=== PATIENT | male | born 1985 | race Caucasian/White ===

== ENCOUNTER 2021-05-22 22:11 | Observation (INO) ==
[2021-05-22] MEDS ORDERED: SODIUM CHLORIDE 0.9% 1000ML 1,000 ML IV STA (23:05)
[2021-05-22] MEDS ORDERED: MoRPHine SULFATE 4 MG/ML 1 ML CARP\\VIAL IV STA (23:05)
[2021-05-22] MEDS ORDERED: ONDANSETRON INJ 2 MG/ML 2 ML VIAL IV STA (23:05)
[2021-05-22 23:24] LABS: Basophils # (auto) 0.02 K/uL (0-0.2); Basophils % (auto) 0.2 %; Eosinophils # (auto) 0.01 K/uL (0-0.5); Eosinophils % (auto) 0.1 %; Hematocrit (blood only) 42.7 % (42-52); Hemoglobin 15.2 g/dL (14.0-18.0); Immature Granulocytes # (auto) 0.02 K/uL (0.00-0.02); Immature Granulocytes % (auto) 0.2 %; Lymphocytes # (auto) 0.94 K/uL (1.2-3.4); Lymphocytes % (auto) 7.2 %; Mean Corpuscular Hemoglobin 33.3 pg (25-34); Mean Corpuscular Hgb Conc 35.6 g/dL (32-36); Mean Corpuscular Volume 93.4 fL (80-100); Mean Platelet Volume 11.5 fL (7.4-10.4); Monocytes # (auto) 0.99 K/uL (0.11-0.59); Monocytes % (auto) 7.6 %; Neutrophils # (auto) 11.09 K/uL (1.4-6.5); Neutrophils % (auto) 84.7 %; Platelet Count 273 K/uL (130-400); RDW Coefficient of Variation 12.2 % (11.5-14.5); RDW Standard Deviation 41.6 fL (36.4-46.3); Red Blood Count 4.57 M/uL (4.7-6.1); White Blood Count 13.07 K/uL (4.8-10.8)
[2021-05-22 23:40] LABS: Albumin Level 4.4 gm/dl (3.4-5.0); BUN Creatinine Ratio 14.4 (10-20); Calcium 9.3 mg/dl (8.5-10.1); Creatinine Clr Calc Pharmacy 143.6 ml/min; Est GFR (African American) 120.6 ml/min; Potassium 3.7 mmol/L (3.5-5.1)
[2021-05-22 23:43] LABS: Albumin Globulin Ratio 1.2 (0.9-2); Bilirubin,Total 0.7 mg/dl (0.2-1); Globulin 3.6 gm/dl (2.5-4.0)
[2021-05-23] MEDS ORDERED: fentaNYL citrate 100 MCG/2 ML VIAL IV STA ×2 (00:16→02:06)
[2021-05-23] MEDS ORDERED: OPTIRAY 320 100ml IV ONE (01:10)
[2021-05-23 01:14] LABS: Appearance Urine Clear (Clear); Bilirubin Urine Negative (Negative); Blood Urine Negative (Negative); Color Urine Yellow; Glucose Urine UA Negative (Negative); Ketones Urine Trace (Negative); Leukocyte Esterase Urine Negative (Negative); Nitrite Urine Negative (Negative); Protein Urine Negative (Negative); Specific Gravity Urine 1.035 (1.000-1.030); Urobilinogen Urine Negative (Negative)
--- NOTE | 2021-05-23 01:48 | Ultrasound Report ---
US gallbladder CLINICAL HISTORY: 35 years-old Male presenting with ruq pain. TECHNIQUE: Real-time grayscale ultrasound imaging of the was performed for a focused evaluation at e site of clinical concern. COMPARISON: None. FINDINGS: Visualized portion of the pancreas shows normal ultrasound appearance. Liver is mildly enlarged measuring 18.3 cm in size. No evidence of hepatic steatosis, focal liver les ions or intrahepatic biliary dilatation. Gallbladder is fluid-filled with normal appearance of its wall and no evidence of pericholecystic alicia ma. No definite gallstones visualized however there is small amount of sludge is seen within dependen t portion of the gallbladder. Sonographic Ngueyn's sign is negative. Common bile duct is measuring 5 mm in size. Limited evaluation of the right kidney shows no evidence of hydronephrosis. IMPRESSION: 1. Slightly enlarged liver. 2. Gallbladder sludge. No sonographic evidence of pericholecystic inflammation. ACT 112: Negative or not required by law. Electronically signed by: Little Woodruff DO 05/23/2021 1:47 AM
--- NOTE | 2021-05-23 01:59 | CT Scan Report ---
CT abd pelvis IV con only CLINICAL HISTORY: right abd pain COMPARISON STUDY: None. TECHNIQUE: A dose lowering technique was utilized adhering to the principles of ALARA. CT DOSE: 909.81 mGy.cm FINDINGS: Lower chest: Limited evaluation of lung bases shows no evidence of acute abnormalities.. Liver: The contrast-enhanced liver is normal in size, contour, and attenuation. There is no intrahepa tic biliary ductal dilatation. The hepatic veins and portal veins are patent. Gallbladder: Unremarkable. Spleen: Normal in size and attenuation. Pancreas: Unremarkable. Adrenal glands: Unremarkable. Kidneys: There is symmetric renal cortical enhancement. The kidneys are normal in size without hydron ephrosis. Pelvic viscera: The bladder, and pelvic viscera are unremarkable. Bowel: Bowel loops are nondilated. Small duodenal diverticulum is seen. Appendix is dilated measuring 1.2 cm in diameter, shows mild mucosal enhancement and surrounding fat stranding. Small amount of fr ee fluid is seen within right lower quadrant. No definite evidence of abscess is seen at this time. S mall appendicolith is seen within lumen of appendix (3/303) Peritoneum: There is no intraperitoneal free air or abdominal ascites. Vasculature: The abdominal aorta is normal in course and caliber. Adenopathy: Multiple small lymph nodes are seen within retroperitoneal region, measuring less than 1 cm in short axis, could be reactive. Skeletal structures: Multilevel Schmorl nodes. Mild retrolisthesis of L5 on S1. IMPRESSION: 1. Acute appendicitis. No evidence of abscess formation is seen at this time. Findings were called t o the emergency Department at the time of this dictation. ACT 112: Negative or not required by law. The above report was generated using voice recognition software. It may contain grammatical, syntax o r spelling errors. Electronically signed by: Little Woodruff DO 05/23/2021 1:57 AM
[2021-05-23] MEDS ORDERED: cefOXitin 2,000 MG/60 ML BAG IV STA (02:06)
--- NOTE | 2021-05-23 02:45 | History & Physical Report ---
Date of Service May 23, 2021 Assessment & Plan (1) Acute appendicitis: Due to the patient's clinical presentation and imaging we will admit the patient to the hospital proceeding as follows: Provide analgesics Provide antiemetics Continue antibiotics. He has received a dose of Mefoxin in the ED Hydrate the patient with IV fluids Keep the patient n.p.o. Follow up on Covid test results Feel the patient would benefit from an appendectomy. I discussed with the patient and his father who was present at bedside outlining the risks, benefits, alternatives. They wish to proceed. Further recommendations were made based on the patient's clinical course as unfolds as well as operative findings. as above. hx c/w appendicitis. discussed options/risks ( bleeding/infection/blood clots/injury to another organ etc...). questions answered. will proceed with lap appy now. History of Present Illness Chief Complaint: Abdominal pain Primary Care Provider: NO PCP This is a 35-year-old male who presented to [facility] emergency department secondary to abdominal pain. Patient notes he was driving from [place] to [facility] [place] yesterday when he developed some back pain. Did not think anything of the back pain but then he ultimately developed some pain that was primarily located epigastric area that radiated across to the front side of his abdomen between the right upper and right lower quadrants. He has had associated nausea vomiting. He denies any fevers, shakes, chills. The patient says that he has never had any abdominal surgeries in the past. His most recent oral intake was approximately 6:00 PM on 05/22/2021. Patient merely thought he had a GI stomach bug however the pain persisted and did not improve so he presented to the emergency department. He does not note any radiation of his pain. He does note that the pain was worse when driving into the hospital and is also worse with certain movements. The only palliative factor he relates is pain medicine that was administered in the emergency department. In the emergency department the patient had labs and imaging which I independently reviewed. CT scan of the abdomen and pelvis showed a dilated appendix measuring 1.2 cm in diameter with some mucosal enhancement and fat stranding. Small appendicolith was noted within the lumen of the appendix and there is no definite evidence of abscess. Patient also did have a gallbladder ultrasound which showed sludge in the gallbladder but no pericholecystic inflammation. Labs included a CBC white blood cell count was 13.0. His hemoglobin, hematocrit, and platelet count are all within normal range. Chemistry profile showed his sodium was 135. Potassium, BUN, and creatinine were all noted to be within normal range. There is no elevation of LFTs or lipase. Urinalysis was not indicative of infection and a Covid test was pending. At the time my interview the patient was resting comfortably in bed he was in no distress. Allergies Allergy/AdvReac Type Severity Reaction Status Date / Time morphine Allergy Mild Rash Verified 05/23/21 01:17 shellfish derived Allergy Mild Unknown Verified 05/22/21 23:40 seasonal allergies Allergy Mild Congested Uncoded 05/22/21 23:39 Home Medications Medication Instructions Recorded Confirmed Type buspirone [BuSpar] 5 mg PO DAILY PRN 05/22/21 05/22/21 History cetirizine [Zyrtec] 5 mg PO BID 05/22/21 05/22/21 History Past Med/Surg History Medical History (Updated 05/23/21 @ 03:30 by Olya Rodriguez PA-C) No acute medical problems Surgical History (Updated 05/23/21 @ 03:26 by Olya Rodriguez PA-C) No pertinent past surgical history Social History Smoking Status: Never smoker Hx Alcohol Use: Yes Alcohol type: other Hx Substance Use: No Preferred Language: Mohawk Communication Ability: Effective Furnace Installer Required: No Beliefs That Will Affect Care: None Current Living Situation: Spouse and Family Other Information That Helps Us Care for You: No Feels Safe at Home: Yes Safety Concerns: Feels Safe At This Time Assistive Devices: None Review of Systems Constitutional: no fever and no chills Eyes: no diplopia Ear, Nose, Mouth, Throat: no ear pain Respiratory: no cough and no dyspnea Cardiovascular: no chest pain Gastrointestinal: + nausea and + vomiting; no abdominal pain Genitourinary: no dysuria Musculoskeletal: + back pain Integumentary: no rash Neurologic: no localized weakness Physical Exam Constitutional: well developed and well nourished; no acute distress Eyes: no conjunctival abnormality ENMT: Ears: no hearing impairment Neck: trachea midline Respiratory: normal respiratory effort, lungs clear to auscultation Cardiovascular: Rate/Rhythm: regular rate Gastrointestinal (Abdomen): Abdomen is rotund. Abdomen is soft. Bowel sounds are present. Patient did have pain with palpation which was greatest in the right lower quadrant over McBurney's point. There are some associated rebound tenderness. Musculoskeletal: No calf tenderness Skin: no rashes, warm and dry Neurologic: moves all extremities Psychiatric: A+Ox3, euthymic affect Results & Data Results & Data ([facility]) Vital Signs (Past 12 Hours) Vital Signs Temp Pulse Resp BP BP Pulse Ox 05/23/21 01:18 18 121/69 97 05/22/21 23:57 96 05/22/21 22:14 36.8 C 67 20 147/74 H 99 PG Care Time/CCT Total # of Minutes Spent Total Time Spent with Patient: Total time spent is greater than 50% in coordination of care (as documented) at patient's floor/unit and/or counseling patient: Coding Level of Care Code 72621 OBS Care - Level 3 Diagnoses Acute appendicitis K35.80
--- NOTE | 2021-05-23 03:30 | Emergency Department Note ---
History of Present Illness General Chief complaint: Abdominal Pain Stated complaint: POTENTIAL ACUTE APPENDICITIS Time Seen by Provider: 05/22/21 22:41 History of Present Illness Maximum Pain Intensity: 0 This 35-year-old presents to the ER complaining of abdominal pain Location: Right upper quadrant Quality: Achy Severity: Moderate Duration: Today Timing: Today Context: Patient was concerned and came in Modifying factors: better with nothing; worse with activity Symptoms started after eating a fried chicken salad. Patient vomited and pain persisted and came in. Patient denies chest pain, dyspnea, fevers, flulike illness. He is received his Covid vaccine. His dad who is present is a retired family doctor. Home Medications Medication Instructions Recorded Confirmed Type buspirone [BuSpar] 5 mg PO DAILY PRN 05/22/21 05/22/21 History cetirizine [Zyrtec] 5 mg PO BID 05/22/21 05/22/21 History Allergies Allergy/AdvReac Type Severity Reaction Status Date / Time morphine Allergy Mild Rash Verified 05/23/21 01:17 shellfish derived Allergy Mild Unknown Verified 05/22/21 23:40 seasonal allergies Allergy Mild Congested Uncoded 05/22/21 23:39 Past Med/Surg History Medical History (Updated 05/23/21 @ 03:30 by Olya Rodriguez PA-C) No acute medical problems Surgical History (Updated 05/23/21 @ 03:26 by Olya Rodriguez PA-C) No pertinent past surgical history Social History Smoking Status: Never smoker Preferred Language: Vietnamese Feels Safe at Home: Yes Review of Systems A total of 10 systems reviewed and were otherwise negative Physical Exam Vital Signs Vital Signs - 24 hr 05/22/21 22:14 05/22/21 23:57 05/23/21 01:18 Temperature 36.8 C Temperature Source Oral Pulse Rate 67 Respiratory Rate 20 18 Respiratory Effort / Characteristics Non-Labored Spontaneous Non-Labored Respiratory Depth Normal Normal Respiratory Pattern Regular Blood Pressure 147/74 H Blood Pressure [Left Arm] 121/69 Blood Pressure Mean 98 Blood Pressure Mean [Left Arm] 86 Blood Pressure Position Sitting Pulse Oximetry 99 96 97 Oxygen Delivery Method Room Air Room Air Room Air Sepsis Recent Fever Within 48 Hours No Sepsis New/Unexplained Change in Mental Status N/A Sepsis Action Taken by Nursing No Action Required 05/23/21 01:30 05/23/21 02:00 05/23/21 02:01 Temperature Temperature Source Pulse Rate 73 61 Respiratory Rate 20 22 Respiratory Effort / Characteristics Respiratory Depth Respiratory Pattern Blood Pressure 119/68 153/96 H Blood Pressure [Left Arm] Blood Pressure Mean 85 115 Blood Pressure Mean [Left Arm] Blood Pressure Position Pulse Oximetry 96 98 Oxygen Delivery Method Room Air Sepsis Recent Fever Within 48 Hours Sepsis New/Unexplained Change in Mental Status Sepsis Action Taken by Nursing 05/23/21 02:30 Temperature Temperature Source Pulse Rate 67 Respiratory Rate 18 Respiratory Effort / Characteristics Respiratory Depth Respiratory Pattern Blood Pressure 150/92 H Blood Pressure [Left Arm] Blood Pressure Mean 111 Blood Pressure Mean [Left Arm] Blood Pressure Position Pulse Oximetry 100 Oxygen Delivery Method Sepsis Recent Fever Within 48 Hours Sepsis New/Unexplained Change in Mental Status Sepsis Action Taken by Nursing VITALS: Vitals are noted on the nurse's note and reviewed by myself. Vital signs stable. GENERAL: Pleasant male, in no acute distress, nondiaphoretic, well-developed well-nourished. SKIN: The skin was without rashes, erythema, edema, or bruising. There is no tenting of the skin. Capillary reflex less than 2 seconds. HEAD: Normocephalic atraumatic. EARS: External auditory canals clear EYES: Pupils equal round and reactive to light and accommodation. Conjunctivae without injection, sclerae without icterus. Extraocular movements intact. NOSE: Patent, turbinates without inflammation or discharge. MOUTH: Mucous membranes moist. Pharynx without erythema or exudate. Uvula midline. Airway patent. Tongue does not deviate. NECK: Supple without nuchal rigidity. No lymphadenopathy. No thyromegaly. Cervical spine is nontender. No JVD. HEART: Regular rate and rhythm LUNGS: Clear to auscultation bilaterally without wheezes, rales or rhonchi. No retractions or accessory muscle use. ABDOMEN: Positive bowel sounds x 4. Normal tympanic percussion. Soft, TTP RUQ/RLQ, without masses or organomegaly. No guarding or rebound tenderness. No CVA tenderness MUSCULOSKELETAL: No muscle atrophy, erythema, or edema noted. NEURO: Patient was alert and oriented to person place and time. Normal sensation to light and sharp touch. No focal neurological deficits. Course Administered Medications Discontinued Medications Fentanyl Citrate (Fentanyl Citrate 100 Mcg/2 Ml Vial) 100 mcg IV NOW STA Stop: 05/23/21 00:17 Last Admin: 05/23/21 00:20 Dose: 100 mcg Documented by: [id number] Fentanyl Citrate (Fentanyl Citrate 100 Mcg/2 Ml Vial) 100 mcg IV NOW STA Stop: 05/23/21 02:07 Last Admin: 05/23/21 02:12 Dose: 100 mcg Documented by: [id number] Sodium Chloride (Nss 1000ml) 1,000 mls @ 999 mls/hr IV .Q1H1M STA Stop: 05/23/21 00:05 Last Infusion: 05/23/21 00:16 Dose: 0 mls/hr Documented by: [id number] Admin: 05/22/21 23:16 Dose: 999 mls/hr Documented by: [id number] Cefoxitin Sodium (Mefoxin) 2,000 mg in 60 mls @ 100 mls/hr IV NOW STA Stop: 05/23/21 02:41 Last Infusion: 05/23/21 02:58 Dose: 0 mls/hr Documented by: [id number] Admin: 05/23/21 02:12 Dose: 100 mls/hr Documented by: [id number] Ioversol (Optiray 320 100ml) 100 ml IV ONCE ONE Stop: 05/23/21 01:11 Last Admin: 05/23/21 01:10 Dose: 93 ml Documented by: [id number] Morphine Sulfate (Morphine Sulfate 4 Mg/Ml 1 Ml Carp\Vial) 4 mg IV NOW STA Stop: 05/22/21 23:06 Last Admin: 05/22/21 23:16 Dose: 4 mg Documented by: [id number] Ondansetron HCl (Ondansetron Inj 2 Mg/Ml 2 Ml Vial) 4 mg IV NOW STA Stop: 05/22/21 23:06 Last Admin: 05/22/21 23:16 Dose: 4 mg Documented by: [id number] Medical Decision Making Medical Records Attestation: I reviewed the patient's medical records. Home Medications Current Medication List: was personally reviewed by me Laboratory Data Attestation: I reviewed the patient's lab results. Result diagrams: 05/22/21 23:00 05/22/21 23:00 Lab Results 05/22/21 05/22/21 05/23/21 Range/Units 23:00 23:00 01:06 WBC 13.07 H (4.8-10.8) K/uL RBC 4.57 L (4.7-6.1) M/uL Hgb 15.2 (14.0-18.0) g/dL Hct 42.7 (42-52) % MCV 93.4 (80-100) fL MCH 33.3 (25-34) pg MCHC 35.6 (32-36) g/dL RDW Std Deviation 41.6 (36.4-46.3) fL RDW Coeff of Blake 12.2 (11.5-14.5) % Plt Count 273 (130-400) K/uL MPV 11.5 H (7.4-10.4) fL Immature Gran % (Auto) 0.2 % Neut % (Auto) 84.7 % Lymph % (Auto) 7.2 % Cache % (Auto) 7.6 % Eos % (Auto) 0.1 % Baso % (Auto) 0.2 % Neut # (Auto) 11.09 H (1.4-6.5) K/uL Lymph # (Auto) 0.94 L (1.2-3.4) K/uL Cache # (Auto) 0.99 H (0.11-0.59) K/uL Eos # (Auto) 0.01 (0-0.5) K/uL Baso # (Auto) 0.02 (0-0.2) K/uL Immature Gran # (Auto) 0.02 (0.00-0.02) K/uL Sodium 135 L (136-145) mmol/L Potassium 3.7 (3.5-5.1) mmol/L Chloride 103 (98-107) mmol/L Carbon Dioxide 24 (21-32) mmol/L Anion Gap 8.0 (3-11) BUN 14 (7-18) mg/dl Creatinine 0.95 (0.6-1.4) mg/dl Est Cr Clr Drug Dosing 143.6 ml/min Est GFR ( Amer) 120.6 ml/min Est GFR (Non-Af Amer) 104.0 ml/min BUN/Creatinine Ratio 14.4 (10-20) Glucose 113 H (70-99) mg/dl Calcium 9.3 (8.5-10.1) mg/dl Total Bilirubin 0.7 (0.2-1) mg/dl AST 29 (15-37) U/L ALT 50 (12-78) U/L Alkaline Phosphatase 53 (45-117) U/L Total Protein 8.0 (6.4-8.2) gm/dl Albumin 4.4 (3.4-5.0) gm/dl Globulin 3.6 (2.5-4.0) gm/dl Albumin/Globulin Ratio 1.2 (0.9-2) Lipase 92 (73-393) U/L Urine Color Yellow Urine Appearance Clear (Clear) Urine pH 7.0 (4.5-7.5) Ur Specific Kevil 1.035 H (1.000-1.030) Urine Protein Negative (Negative) Urine Glucose (UA) Negative (Negative) Urine Ketones Trace H (Negative) Urine Blood Negative (Negative) Urine Nitrite Negative (Negative) Urine Bilirubin Negative (Negative) Urine Urobilinogen Negative (Negative) Ur Leukocyte Esterase Negative (Negative) COVID-19 Eval Order 05/23/21 Range/Units 02:21 WBC (4.8-10.8) K/uL RBC (4.7-6.1) M/uL Hgb (14.0-18.0) g/dL Hct (42-52) % MCV (80-100) fL MCH (25-34) pg MCHC (32-36) g/dL RDW Std Deviation (36.4-46.3) fL RDW Coeff of Blake (11.5-14.5) % Plt Count (130-400) K/uL MPV (7.4-10.4) fL Immature Gran % (Auto) % Neut % (Auto) % Lymph % (Auto) % Cache % (Auto) % Eos % (Auto) % Baso % (Auto) % Neut # (Auto) (1.4-6.5) K/uL Lymph # (Auto) (1.2-3.4) K/uL Cache # (Auto) (0.11-0.59) K/uL Eos # (Auto) (0-0.5) K/uL Baso # (Auto) (0-0.2) K/uL Immature Gran # (Auto) (0.00-0.02) K/uL Sodium (136-145) mmol/L Potassium (3.5-5.1) mmol/L Chloride (98-107) mmol/L Carbon Dioxide (21-32) mmol/L Anion Gap (3-11) BUN (7-18) mg/dl Creatinine (0.6-1.4) mg/dl Est Cr Clr Drug Dosing ml/min Est GFR ( Amer) ml/min Est GFR (Non-Af Amer) ml/min BUN/Creatinine Ratio (10-20) Glucose (70-99) mg/dl Calcium (8.5-10.1) mg/dl Total Bilirubin (0.2-1) mg/dl AST (15-37) U/L ALT (12-78) U/L Alkaline Phosphatase (45-117) U/L Total Protein (6.4-8.2) gm/dl Albumin (3.4-5.0) gm/dl Globulin (2.5-4.0) gm/dl Albumin/Globulin Ratio (0.9-2) Lipase (73-393) U/L Urine Color Urine Appearance (Clear) Urine pH (4.5-7.5) Ur Specific Kevil (1.000-1.030) Urine Protein (Negative) Urine Glucose (UA) (Negative) Urine Ketones (Negative) Urine Blood (Negative) Urine Nitrite (Negative) Urine Bilirubin (Negative) Urine Urobilinogen (Negative) Ur Leukocyte Esterase (Negative) COVID-19 Eval Order Covid19 at [facility] Imaging Data Attestation: I personally reviewed and interpreted this imaging study as follows: MDM Narrative Prior records/ancillary studies reviewed. Triage Nursing notes reviewed. Additional history obtained from family. The patient's history was concerning for abdominal pain. Differential diagnosis: Etiologies such as appendicitis, diverticulitis, PUD, biliary pathology, UTI, pancreatitis, obstruction, mesenteric ischemia, aortic pathology, infections, inflammatory bowel disease, renal colic, as well as others were entertained. Physical examination findings: As above. ER treatment provided: An order was placed for continuous cardiac monitoring. The monitor shows a rate of 60-100 with a sinus rhythm. IV fluids, morphine, fentanyl, Zofran, Mefoxin On reassessment the patient felt better. Diagnostics interpreted by me: The labs revealed leukocytosis, normal LFTs Imaging studies: As above Consultation: A consultation was placed with the surgical PA chula. The case was discussed and diagnostics were reviewed. The patient was evaluated in the ER for further treatment. Exam and history seem consistent with acute appendicitis. Patient was started on antibiotics. Surgery was consulted. He will be admitted to the surgical service. By the evaluation outlined above emergent etiologies such as diverticulitis, PUD, biliary pathology, UTI, pancreatitis, obstruction, mesenteric ischemia, aortic pathology, inflammatory bowel disease, renal colic, as well as others were deemed relatively unlikely. The pt informed about the findings as listed above. All questions were answered and pleased with the treatment. The chart was completed utilizing [employer] Speech voice recognition software. Grammatical errors, random word insertions, pronoun errors, and incomplete sentences are an occassional consequence of this system due to software limitations, ambient noise, and hardware issues. Any formal questions or concerns about the content, text, or information contained within the body of t his dictation should be directly addressed to the physician management assistant for clarification. Impression & Plan Acute appendicitis Discharge Plan Visit Data Chief Complaint: Abdominal Pain Stated Complaint: POTENTIAL ACUTE APPENDICITIS ED Provider: Ez Becerril ED Midlevel Provider: Olya Rodriguez Discharge Problem: Acute appendicitis Patient Disposition: Being Evaluated by Surgeon Condition: Good Forms Stand Alone Forms: [facility] Prescriptions Prescriptions: No Action cetirizine [Zyrtec] 10 mg Tablet 5 mg PO BID RF: 0 buspirone [BuSpar] 10 mg Tablet 5 mg PO DAILY PRN (Reason: Anxiety) RF: 0 Referrals Referrals: PCP,NO [Primary Care Provider] -
[2021-05-23] MEDS ORDERED: busPIRone 5 MG TAB PO PRN (04:35)
[2021-05-23] MEDS ORDERED: ONDANSETRON INJ 2 MG/ML 2 ML VIAL IV PRN ×2 (04:35→09:30)
[2021-05-23] MEDS ORDERED: ACETAMINOPHEN 1,000 MG/100 ML VIAL IV PRN (04:35)
[2021-05-23] MEDS ORDERED: MoRPHine SULFATE 4 MG/ML 1 ML CARP\\VIAL IV PRN (04:35)
[2021-05-23] MEDS: LACTATED RINGER'S 1,000 ML IV SCH ×2 (05:10→15:43)
[2021-05-23] MEDS: cefOXitin 2,000 MG in DEXTROSE 5% 50 ML IV SCH ×3 (07:52→19:41)
[2021-05-23] MEDS: CETIRIZINE HCL 10 MG TABLET PO SCH ×2 (07:56→20:11)
[2021-05-23] MEDS ORDERED: MIDAZOLAM HCL 1 MG/ML 2ML VIAL ONE (08:12)
[2021-05-23] MEDS ORDERED: LIDOCAINE 2% 2 ML VIAL/AMP(20MG/ML) INFIL ONE (08:12)
[2021-05-23] MEDS ORDERED: PROPOFOL IV EMULSION 10 MG/ML 20 ML VIAL IV ONE ×3 (08:12→10:49)
[2021-05-23] MEDS ORDERED: ONDANSETRON INJ 2 MG/ML 2 ML VIAL ONE (08:12)
[2021-05-23] MEDS ORDERED: ROCURONIUM BROMIDE 10 MG/ML 5 ML VIAL IV ONE ×2 (08:12→10:31)
[2021-05-23] MEDS ORDERED: DEXAMETHASONE SOD INJ 4 MG/ML VIAL ONE (08:12)
[2021-05-23] MEDS ORDERED: fentaNYL citrate 100 MCG/2 ML VIAL ONE ×2 (08:12→10:28)
[2021-05-23] MEDS ORDERED: BUPIVACAINE/EPINEPHRINE 0.5% MPF 1:200,000 30 ML VIAL ONE (09:10)
--- NOTE | 2021-05-23 09:28 | Anesthesiology Consultation ---
Date of Service May 23, 2021 Assessment & Plan Chart Review Chart Review: Acceptable Risk for Surgery Consults Requested none History Surgery Operation Date: 05/23/21 09:50 Proposed Procedures p Laparoscopic Appendectomy, Possible Open - Sam Shine DO Height/Weight Height: 6 ft Weight: 115.3 kg Allergies Allergy/AdvReac Type Severity Reaction Status Date / Time morphine Allergy Mild Rash Verified 05/23/21 01:17 shellfish derived Allergy Mild Unknown Verified 05/22/21 23:40 seasonal allergies Allergy Mild Congested Uncoded 05/22/21 23:39 Medications Home Medications Medication Instructions Recorded Confirmed Last Taken buspirone [BuSpar] 5 mg PO DAILY PRN 05/22/21 05/22/21 Unknown cetirizine [Zyrtec] 5 mg PO BID 05/22/21 05/22/21 Unknown Active Medications Generic Name Dose Route Start Last Admin Trade Name Freq PRN Reason Stop Dose Admin Cetirizine HCl 5 mg 05/23/21 09:00 05/23/21 07:56 Cetirizine Hcl 10 Mg Tablet PO 06/22/21 08:59 Not Given BID FRANCESCA Lactated Ringer's 1,000 mls @ 100 mls/hr 05/23/21 04:35 05/23/21 05:10 Lr IV 06/22/21 04:34 100 mls/hr .Q10H FRANCESCA Administration Acetaminophen 1,000 mg in 100 mls @ 400 mls/hr 05/23/21 04:35 05/23/21 07:51 Ofirmev IV 05/26/21 04:34 Infused Q8H PRN Infusion Pain Cefoxitin Sodium 2,000 mg/ 60 mls @ 100 mls/hr 05/23/21 08:00 05/23/21 08:30 Dextrose IV 06/02/21 07:59 Infused Q6H FRANCESCA Infusion NPO Date Last Intake of Fluids: 05/22/21 Time Last Intake of Fluids: 21:30 Date Last Intake of Solids: 05/22/21 Time Last Intake of Solids: 17:00 Past Medical History Medical History No acute medical problems Past Surgical History Surgical History No pertinent past surgical history Social History Smoking Status: Never smoker Hx Alcohol Use: Yes Alcohol type: other alcohol intake frequency: holidays/special occasions only Hx Substance Use: No substance use type: does not use Physical Exam Vital Signs Last Vital Signs Temp 37.1 C 05/23/21 08:54 Pulse 83 05/23/21 08:54 Resp 18 05/23/21 08:54 BP 127/67 05/23/21 08:54 Pulse Ox 95 05/23/21 08:54 Testing Laboratory Results 05/22/21 23:00 05/22/21 23:00 Urine Color Yellow 05/23/21 01:06 Urine Appearance Clear (Clear) 05/23/21 01:06 Urine pH 7.0 (4.5-7.5) 05/23/21 01:06 Ur Specific [place] 1.035 (1.000-1.030) H 05/23/21 01:06 Urine Protein Negative (Negative) 05/23/21 01:06 Urine Glucose (UA) Negative (Negative) 05/23/21 01:06 Urine Ketones Trace (Negative) H 05/23/21 01:06 Urine Nitrite Negative (Negative) 05/23/21 01:06 Ur Leukocyte Esterase Negative (Negative) 05/23/21 01:06
[2021-05-23] MEDS ORDERED: HYDROmorphone INJ 2 MG/ML SYR/VIAL IV PRN (09:30)
[2021-05-23] MEDS ORDERED: fentaNYL citrate 100 MCG/2 ML VIAL IV PRN (09:30)
[2021-05-23] MEDS ORDERED: ePHEDrine sulfate 50 MG/ML AMP IV PRN (09:30)
[2021-05-23] MEDS ORDERED: ATROPINE SULFATE 0.1 MG/ML 10ML SYR IV PRN (09:30)
[2021-05-23] MEDS ORDERED: GLYCOPYRROLATE 0.2 MG/ML VIAL ONE (10:49)
[2021-05-23] MEDS ORDERED: KETOROLAC 30 MG/ML VIAL ONE (10:49)
[2021-05-23] MEDS ORDERED: NEOSTIGMINE METHYLSULFATE 1 MG/ML 10ML VIAL ONE (10:49)
--- NOTE | 2021-05-23 11:16 | Operative Report ---
PG Post Operative Report Pre & Post Diagnosis Operation Date: 05/23/21 09:50 Pre-Op Diagnosis: Acute Appendicitis Post-Op Diagnosis: Acute Appendicitis I identified the patient and participated in the time-out.: Yes Procedure Operation Date: 05/23/21 09:50 Actual Procedures p Laparoscopic Appendectomy(Not Applicable) - Sam Shine DO Surgeon Sam Shine DO Base Ply Hand dalton Tidwell Estimated Blood Loss 10 Findings Consistent with Post-Op Diagnosis Specimens appendix Description of Procedure After informed consent was obtained the patient was taken to the operating room and placed in supine position. After successful intubation a Smith catheter was placed and the left arm was tucked. A Smith catheter was inserted sterilely. I began by making a periumbilical incision with an 11 blade scalpel and carried this down through the soft tissue using electrocautery. The anterior rectus fascia was opened using electrocautery and 2 #0 Vicryl stay sutures were placed. The peritoneum was elevated using hemostats and incised under direct vision using a Metzenbaum scissor. A finger sweep was performed. A 12 mm López trocar was placed and the abdomen was insufflated to 18 mmHg. A laparoscope was inserted and the abdomen was examined in 360. A suprapubic 5 mm port and a left lower quadrant 12 mm port were placed under direct vision. The patient was air planed to the left as well as placed in a slight Trendelenburg position. We began by looking in the right lower quadrant. We were able to readily identify the appendix and it was grossly inflamed. It had not perforated. There is a small amount of purulent fluid in the right lower quadrant and the pelvis. We immediately irrigated and suctioned this out. I was able to use primarily blunt dissection to pull the appendix away from the right lower quadrant sidewall. It was quite thick at its base. Because of this I exchanged the left lower quadrant 12 mm trocar for a 15 mm trocar. I was then able to use a ESTHER black 60 mm cartridge stapler to transect both the mesentery of the appendix as well as the appendix itself at its base with the cecum. Once this was accomplished I had better visualization of the cecum itself and realized there was a small appendiceal stump remaining. I freed this up and use a second firing of a ESTHER black cartridge 60 mm stapler to remove the remaining appendiceal stump. It was then placed into an Endo Catch bag and removed from the camera port site. We thoroughly irrigated the right lower quadrant as well as the pelvis. The staple line was intact. There was adequate hemostasis. I ran the small bowel backwards from the terminal ileum for about 6 feet all of which was normal. All the peritoneal surfaces were normal. Small/ large bowel, liver, stomach etc. all appeared grossly normal. We did a final irrigation and then removed all the trochars and desufflated the abdomen. The fascia of the camera port as well as the left lower quadrant were closed using 0 Vicryl in [id number] fashion. Wounds were all irrigated and closed using 4-0 Monocryl. Marcaine was injected around them for postoperative analgesia and skin glue used as a dressing. The patient was awakened extubated and transferred to recovery in stable condition. My physician's back office medical assistant was present through the entire case. She assisted with prepping the patient and helped with exposure for port placement, helped run the camera and helped with fascial/wound closure at the end of the procedure as well as dressing placement. I attest to the content of the Intraoperative Record and any orders documented therein. Any exceptions are noted below. I attest to the content of the Intraoperative Record and any orders documented therein. Any exceptions are noted below.
[2021-05-23] MEDS ORDERED: HYDROCODONE/ACETAMOPHEN 5/325MG TAB PO PRN (12:26)
[2021-05-23] MEDS ORDERED: HYDROmorphone INJ 0.5 MG/0.5 ML SYR IV PRN (12:26)
[2021-05-23] MEDS ORDERED: HYDROmorphone INJ 1 MG/ML SYRINGE IV PRN (12:26)
--- NOTE | 2021-05-23 12:31 | Anesthesiology Progress Note ---
Date of Service May 23, 2021 Anesthesia Post Procedure Vital Signs Vital Signs: Temp Pulse Pulse Pulse Pulse Resp BP 05/23/21 11:55 36.8 C 72 19 05/23/21 11:45 74 14 05/23/21 11:35 71 16 05/23/21 11:25 68 16 05/23/21 11:15 70 20 05/23/21 11:07 36.9 C 78 18 05/23/21 08:54 37.1 C 83 18 05/23/21 07:26 37.3 C 75 18 05/23/21 04:37 37.3 C 74 14 05/23/21 04:00 69 21 144/79 H 05/23/21 03:30 73 24 136/82 05/23/21 03:00 77 19 159/85 H 05/23/21 02:30 67 18 150/92 H 05/23/21 02:00 61 22 153/96 H 05/23/21 01:30 73 20 119/68 05/23/21 01:18 18 05/22/21 23:57 05/22/21 22:14 36.8 C 67 20 147/74 H BP Pulse Ox 05/23/21 11:55 136/74 95 05/23/21 11:45 133/73 97 05/23/21 11:35 145/74 H 95 05/23/21 11:25 147/77 H 96 05/23/21 11:15 131/73 98 05/23/21 11:07 145/72 H 96 05/23/21 08:54 127/67 95 05/23/21 07:26 113/61 97 05/23/21 04:37 123/80 99 05/23/21 04:00 97 05/23/21 03:30 94 05/23/21 03:00 95 05/23/21 02:30 100 05/23/21 02:00 98 05/23/21 01:30 96 05/23/21 01:18 121/69 97 05/22/21 23:57 96 05/22/21 22:14 99 Pain Intensity Right Upper Abdomen: Pain Intensity: 1 Transfer of Care Handoff Completed per policy Notes Mental Status: alert / awake / arousable and participated in evaluation Patient Amnestic to Procedure: Yes Nausea / Vomiting: adequately controlled Pain: adequately controlled Airway Patency, RR, SpO2: stable & adequate BP & HR: stable & adequate Hydration State: stable & adequate Anesthetic Complications: no major complications apparent
[2021-05-23] MEDS: HYDROCODONE/ACETAMOPHEN 5/325MG TAB PO PRN ×2 (13:26→20:10)
[2021-05-23] MEDS ORDERED: COUGH DROP (SUGAR FREE) LOZ 24 LOZ/1 BOX BUCCAL ONE (20:02)
[2021-05-24] MEDS: cefOXitin 2,000 MG in DEXTROSE 5% 50 ML IV SCH ×2 (01:53→09:20)
[2021-05-24 06:42] LABS: Basophils # (auto) 0.02 K/uL (0-0.2); Basophils % (auto) 0.2 %; Eosinophils # (auto) 0.03 K/uL (0-0.5); Eosinophils % (auto) 0.3 %; Hematocrit (blood only) 43.3 % (42-52); Hemoglobin 14.8 g/dL (14.0-18.0); Immature Granulocytes # (auto) 0.02 K/uL (0.00-0.02); Immature Granulocytes % (auto) 0.2 %; Lymphocytes # (auto) 2.24 K/uL (1.2-3.4); Lymphocytes % (auto) 18.9 %; Mean Corpuscular Hgb Conc 34.2 g/dL (32-36); Mean Corpuscular Volume 96.7 fL (80-100); Mean Platelet Volume 11.3 fL (7.4-10.4); Monocytes # (auto) 1.19 K/uL (0.11-0.59); Monocytes % (auto) 10.1 %; Neutrophils # (auto) 8.34 K/uL (1.4-6.5); Neutrophils % (auto) 70.3 %; Platelet Count 246 K/uL (130-400); RDW Coefficient of Variation 12.7 % (11.5-14.5); RDW Standard Deviation 44.5 fL (36.4-46.3); Red Blood Count 4.48 M/uL (4.7-6.1); White Blood Count 11.84 K/uL (4.8-10.8)
[2021-05-24 07:11] LABS: BUN Creatinine Ratio 15.3 (10-20); Calcium 8.9 mg/dl (8.5-10.1); Creatinine Clr Calc Pharmacy 160.5 ml/min; Est GFR (African American) 131.8 ml/min; Est GFR (Non-African American) 113.7 ml/min; Potassium 3.9 mmol/L (3.5-5.1)
[2021-05-24] MEDS: CETIRIZINE HCL 10 MG TABLET PO SCH (09:20)
--- NOTE | 2021-05-24 09:21 | Surgery Progress Note ---
Date of Service May 24, 2021 Assessment & Plan (1) Acute appendicitis: POD#1 laparoscopic appendectomy Patient clinically feeling well WBC 11 (13), afebrile, VSS Tolerating a regular diet. Pain well controlled. Incisions c/d/i Will plan on discharge today on a course of po augmentin Told patient he can take stool softeners at home if needed, such as colace Patient planning to stay in [facility] for a couple of days then head back to [place]. He will set up a Telehealth appt with Dr. Shine within 1-2 weeks Admission and Anticipated Discharge Date Admission Date: May 23, 2021 Supervising Physician Co-Signing Physician Notes I personally saw and evaluated the patient with Megan Tidwell PA-C and agree with the assessment and plan 35 yo male POD#1 lap appy Tolerating diet without N/V Ambulating well Pain controlled D/C home today with 7 day course of Augmentin Subjective Patient feels well this AM. He is tolerating a regular diet, no nausea/vomiting. Pain is well controlled. No gas/BM. Physical Exam Physical Exam: awake/alert Constitutional: well developed and well nourished; no acute distress Gastrointestinal (Abdomen): Inspection/Auscultation: + abdominal surgical incision (c/d/i with dermabond overtop, some ecchymosis noted norman-incisionally) Percussion/Palpation: abdomen soft; abdomen nontender Results & Data ([facility]) Vital Signs (Past 12 Hours) Vital Signs Temp Pulse Resp BP Pulse Ox 05/24/21 08:42 36.8 C 74 18 118/67 96 05/24/21 02:57 36.7 C 61 16 101/60 94 05/23/21 22:40 36.7 C 80 16 117/65 94 PG Care Time/CCT Total # of Minutes Spent Total Time Spent with Patient: Total time spent is greater than 50% in coordination of care (as documented) at patient's floor/unit and/or counseling patient: Coding Level of Care Code None Diagnoses Acute appendicitis K35.80 Acute appendicitis type: unspecified acute appendicitis type (1) Acute appendicitis Acute appendicitis type: unspecified acute appendicitis type Qualified Code(s): K35.80 - Unspecified acute appendicitis
--- NOTE | 2021-05-27 15:00 | Discharge Summary ---
Date of Service May 27, 2021 Admission HPI Per Admitting Provider This is a 35-year-old male who presented to [facility] emergency department secondary to abdominal pain. Patient notes he was driving from [place] to [place] yesterday when he developed some back pain. Did not think anything of the back pain but then he ultimately developed some pain that was primarily located epigastric area that radiated across to the front side of his abdomen between the right upper and right lower quadrants. He has had associated nausea vomiting. He denies any fevers, shakes, chills. The patient says that he has never had any abdominal surgeries in the past. His m ost recent oral intake was approximately 6:00 PM on 05/22/2021. Patient merely thought he had a GI stomach bug however the pain persisted and did not improve so he presented to the emergency department. He does not note any radiation of his pain. He does note that the pain was worse when driving into the hospital and is also worse with certain movements. The only palliative factor he relates is pain medicine that was administered in the emergency department. In the emergency department the patient had labs and imaging which I independently reviewed. CT scan of the abdomen and pelvis showed a dilated appendix measuring 1.2 cm in diameter with some mucosal enhancement and fat stranding. Small appendicolith was noted within the lumen of the appendix and there is no definite evidence of abscess. Patient also did have a gallbladder ultrasound which showed sludge in the gallbladder but no pericholecystic inflammation. Labs included a CBC white blood cell count was 13.0. His hemoglobin, hematocrit, and platelet count are all within normal range. Chemistry profile showed his sodium was 135. Potassium, BUN, and creatinine were all noted to be within normal range. There is no elevation of LFTs or lipase. Urinalysis was not indicative of infection and a Covid test was pending. At the time my interview the patient was resting comfortably in bed he was in no distress. Principal Diagnosis acute appendicitis Discharge Exam awake/alert Constitutional well developed and well nourished; no acute distress Respiratory normal respiratory effort Gastrointestinal (Abdomen) Inspection/Auscultation: + abdominal surgical incision (c/d/i with dermabond overtop) Percussion/Palpation: abdomen soft; abdomen nontender Discharge Data Allergies Allergy/AdvReac Type Severity Reaction Status Date / Time morphine Allergy Mild Rash Verified 05/23/21 01:17 shellfish derived Allergy Mild Unknown Verified 05/22/21 23:40 seasonal allergies Allergy Mild Congested Uncoded 05/22/21 23:39 Consultations 05/23/21 02:13 ED Decision to Admit Stat Procedures Performed Operation Date: 05/23/21 09:50 Actual Procedures p Laparoscopic Appendectomy(Not Applicable) - Sam Shine, DO Ordered Studies 05/22/21 23:05 US gallbladder Stat 05/23/21 00:25 CT abd pelvis IV con only Stat Hospital Course (1) Acute appendicitis: This is a 35yM who presented to the [facility] ED on 05/23/21 with abdominal pain. Workup in the ED showed a WBC of [address] a/p concerning for acute appendicitis. The patient was tender to palpation in the RLQ. Patient made NPO with IVF and booked for the OR. On 05/23 the patient went to the OR with Dr. Shine for a laparoscopic appendectomy. The patient tolerated the procedure well, see operative report for full details. Post operatively the patient's diet was advanced and pain managed on prn meds. He remained admitted to the hospital overnight to continue on IV abx. On 05/24 patient's WBC 11 and patient afebrile. Patient continued to tolerate a diet, no n/v, was urinating well. Pain controlled on prn medication. Incisions c/d/i. On 05/24 the patient was deemed stable for discharge to home and was given a prescription for antibiotics to complete a course at home. Patient is from [place] and only planning to remain in town a few more days. He was instructed to call our office for a telehealth visit within 1-2 weeks. Total Time Total Time Spent Total Time Spent (In Minutes): 15 Discharge Plan Discharge Items Patient Disposition: Home - Self-Care Reason For Visit: APPY Discharge Diagnosis: appendicitis Condition on Discharge: Good Activity: Per Instructions section Lifting: No more than 10 pounds Bathing Comment: may shower starting 05/24/21; no soaking in tubs/pools Exercise/Sports: Wait until after follow-up appointment Driving/Machine Use: wait at least 3 days; no driving while taking narcotics for pain Non-emergency contact: Surgeon Call non-emergency contact if: you have any medication questions, your symptoms worsen, your pain is not controlled, your pain is worsening, your pain is unusual for you, your pain is concerning for you, you have a fever, your temperature is above 101.5, your wound has increased redness, your wound has increased drainage and your wound pain has increased Follow-up/Referrals: Sam Shine, DO [Surgeon] - (Please call to schedule a tele-health follow up visit with Dr. Shine within 1-2 weeks) PCP,NO [Primary Care Provider] - Diet: Regular Addtl Attending Provider Instructions: You may purchase a stool softener over the counter if needed, such as colace. Pending Studies at Discharge: Yes Studies:: surgical pathology Stand-Alone Forms: My [facility], Work/School Release, Smoking Cessation Medications and DC Order Prescriptions: New hydrocodone-acetaminophen 5-325 mg tablet 1 - 2 tab PO .q4h- q6h PRN (Reason: pain, for initial therapy, max 6 tabs per day ) Qty: 10 RF: 0 amoxicillin-pot clavulanate [Augmentin] 875-125 mg tablet 1 tab PO Q12H Qty: 14 RF: 0 Continued cetirizine [Zyrtec] 10 mg Tablet 5 mg PO BID RF: 0 buspirone 10 mg Tablet 5 mg PO DAILY PRN (Reason: Anxiety) RF: 0 Discharge Orders: Discharge Order (Routine); Ordered 05/24/21 Ordered By: Megan Martinez/Other Patient Handouts: What Is Appendicitis? Admission Data Admit Date/Time: 05/23/21 03:52 Attending Provider: Sam Shine Admit Provider: Karl Barnes Primary Care Provider: PCP,NO Other Providers: Sam Shine Other Interventions: Discharge Summary Assessment (RN) Last Done: 05/24/21 11:01 Coding Level of Care Code D/C DAY MANAGEMENT <30 MINS Diagnoses Acute appendicitis K35.80 Acute appendicitis type: unspecified acute appendicitis type
== END 2021-05-24 12:19 | disposition home or self-care (01) ==
LOC: 3N 22:11 → ED 22:11 → 3N 05-23 04:19